=== PATIENT | female | born 1980 | race Caucasian/White ===

== ENCOUNTER 2016-10-21 19:53 | Emergency (ER) | payer OTHER ==
[~2016-10-21] VITALS: Ht 165.1 cm; Wt 120.0 kg
[~2016-10-21 19:53] MED LIST: CILOXAN 0.100 DROP/5 BOTH EYES; ESOMEPRAZOLE MA40 MG PO; MONTELUKAST SOD10 MG PO; MOTRIN800 MG PO; PERCOCET 5/31 TABLET PO; VENTOLIN HFA18 GM IH; ZOFRAN ODT4 MG PO
[2016-10-21 21:42] LABS: CHLORIDE 105 mEq/L (99-109); POTASSIUM 4.2 mEq/L (3.7-5.4); SODIUM 140 mEq/L (136-147)
[2016-10-21 21:44] LABS: GLUCOSE 100 mg/dL (70-99)
[2016-10-21 21:45] LABS: ANION GAP 9 MEQ/L (2-14)
[2016-10-21 21:46] LABS: TOTAL BILIRUBIN 0.2 mg/dL (0.0-1.0)
[2016-10-21 21:47] LABS: ALKALINE PHOSPHATASE 42 IU/L (3-129)
[2016-10-21 21:48] LABS: GFR ESTIMATE (CALCULATED) > 59 mL/min/
[2016-10-21 21:49] LABS: UREA NITROGEN (BUN) 6 mg/dL (9-23)
[2016-10-21 21:53] LABS: HEMATOCRIT 28.8 % (36.0-46.0); MCH 21.3 PG (29.0-34.0); MCHC 29.2 G/DL (30.0-36.0); MCV 73.1 FL (83-99); MEAN PLAT.VOLUME 10.3 uM^3 (9.5-12.4); PLATELET COUNT 279 K/uL (156-360); RBC DIS.WIDTH-CV 16.9 % (11.8-14.6); RBC DIS.WIDTH-SD 44.6 % (39-53); RED BLOOD COUNT 3.94 M/uL (3.80-5.20); WHITE BLOOD COUNT 5.5 K/uL (4.1-10.2)
[2016-10-21 21:59] LABS: QUANTITATIVE HCG < 4.0 MIU/ML; TROP-I INTERPRETATION NEGATIVE; TROPONIN-I < 0.01 ng/mL (0.0-0.30)
[2016-10-21] MEDS ORDERED: ATIVAN0.5 MG PO (22:48)
[2016-10-21 23:37] VITALS: BP 118/59
== END 2016-10-21 23:39 | disposition home or self-care (01) ==
LOC: EME 19:53
PROVIDERS: Physician Assistant
DX: R07.9 Chest pain, unspecified (principal); F41.1 Generalized anxiety disorder; K21.9 Gastro-esophageal reflux disease without esophagitis; F17.200 Nicotine dependence, unspecified, uncomplicated
CPT/HCPCS: 71020; 80053; 84484; 84702; 85027; 85379; 93005; 99281; 99283

== ENCOUNTER 2016-11-10 21:10 | Observation (INO) | payer OTHER ==
[~2016-11-10] VITALS: Ht 165.1 cm; Wt 118.7 kg
[~2016-11-10 21:10] MED LIST changes: +ATIVAN0.5 MG PO
[2016-11-10 22:16] LABS: HEMATOCRIT 30.3 % (36.0-46.0); MCH 20.6 PG (29.0-34.0); MCHC 28.4 G/DL (30.0-36.0); MCV 72.5 FL (83-99); MEAN PLAT.VOLUME 10.7 uM^3 (9.5-12.4); PLATELET COUNT 300 K/uL (156-360); RBC DIS.WIDTH-CV 16.6 % (11.8-14.6); RBC DIS.WIDTH-SD 42.9 % (39-53); RED BLOOD COUNT 4.18 M/uL (3.80-5.20); WHITE BLOOD COUNT 9.2 K/uL (4.1-10.2)
[2016-11-10 22:25] LABS: CHLORIDE 106 mEq/L (99-109); POTASSIUM 3.7 mEq/L (3.7-5.4); SODIUM 138 mEq/L (136-147)
[2016-11-10 22:27] LABS: GLUCOSE 102 mg/dL (70-99)
[2016-11-10 22:28] LABS: ANION GAP 9 MEQ/L (2-14)
[2016-11-10 22:29] LABS: TOTAL BILIRUBIN 0.2 mg/dL (0.0-1.0)
[2016-11-10 22:30] LABS: ALKALINE PHOSPHATASE 40 IU/L (3-129)
[2016-11-10 22:31] LABS: GFR ESTIMATE (CALCULATED) > 59 mL/min/
[2016-11-10 22:32] LABS: UREA NITROGEN (BUN) 8 mg/dL (9-23)
[2016-11-10 22:34] LABS: LIPASE 13 U/L (1.0-51.0)
[2016-11-10 22:43] LABS: QUANTITATIVE HCG < 4.0 MIU/ML
[2016-11-11] VITALS (8 sets, daily range): BP systolic 100–130; BP diastolic 44–67
[2016-11-11 01:45] LABS: ADD MIUA? YES; BILIRUBIN NEGATIVE; BLOOD NEGATIVE; COLOR YELLOW ((YELLOW)); GLUCOSE (STRIP) NEGATIVE; KETONES 5; LEUKOCYTES NEGATIVE; NITRITE NEGATIVE; PROTEIN (STRIP) 30; SPECIFIC GRAVITY 1.026 (1.000-1.030)
[2016-11-11 02:15] LABS: BACTERIA RARE /HPF; CALCIUM OXALATE CRYSTALS 1+ /HPF; EPITHELIAL CELLS 2+ /HPF; MUCUS 3+ /LPF; UCUL ADDED? NO; WHITE BLOOD CELLS 0-5 /HPF (0-5)
[2016-11-12 03:44] VITALS: BP 118/63
[2016-11-12 07:58] VITALS: BP 132/70
[2016-11-12 11:19] VITALS: BP 131/70
[2016-11-12] MEDS ORDERED: PERCOCET 5/31 TABLET PO (12:08)
[2016-11-12] MEDS ORDERED: ZOFRAN ODT4 MG PO (12:08)
== END 2016-11-12 13:17 | disposition home or self-care (01) ==
LOC: EME 21:10 → EDOF 11-11 02:50 → ENRESERV 11-11 02:54 → 2EAST 11-11 04:15
PROC: 0DTJ4ZZ Resection of Appendix, Percutaneous Endoscopic Approach (ICD-10-PCS; principal; 2016-11-11)
DX: K35.80 Unspecified acute appendicitis (principal); D64.9 Anemia, unspecified; F17.210 Nicotine dependence, cigarettes, uncomplicated; K21.9 Gastro-esophageal reflux disease without esophagitis; Z86.79 Personal history of other diseases of the circulatory system; Z88.0 Allergy status to penicillin
CPT/HCPCS: 74177; 80053; 81003; 83690; 84702; 85027; 88304; 94799; 99281; 99283; G0378; J0131; J0330; J1170; J1200; J1885; J2250; J2270; J2405; J2550; J2765; J3010; J7030; J7120; S0030; S0074

== ENCOUNTER → 2017-02-02 | Outpatient (CLI) | payer OTHER ==
[~2017-02-02] VITALS: Ht 165.1 cm; Wt 117.9 kg
[~2017-02-02] MED LIST changes: +IBUPROFEN400 MG PO
== END | disposition home or self-care (01) ==
LOC: AMB 06:44
PROC: 0DJD8ZZ Inspection of Lower Intestinal Tract, Via Natural or Artificial Opening Endoscopic (ICD-10-PCS; principal; 2017-02-02)
DX: K60.2 Anal fissure, unspecified (principal); K64.8 Other hemorrhoids; K62.89 Other specified diseases of anus and rectum; D50.0 Iron deficiency anemia secondary to blood loss (chronic); E66.01 Morbid (severe) obesity due to excess calories; Z68.41 Body mass index [BMI] 40.0-44.9, adult; J45.909 Unspecified asthma, uncomplicated; F17.200 Nicotine dependence, unspecified, uncomplicated; K21.9 Gastro-esophageal reflux disease without esophagitis; E78.6 Lipoprotein deficiency; L40.9 Psoriasis, unspecified; E53.8 Deficiency of other specified B group vitamins; Z82.49 Family history of ischemic heart disease and other diseases of the circulatory system; Z82.61 Family history of arthritis; Z88.5 Allergy status to narcotic agent
CPT/HCPCS: J1100; J2250; J2405; J2765